=== PATIENT | male | born 1955 | race Hispanic/Latino ===

== ENCOUNTER 2018-02-21 00:02 | Inpatient (IN) | payer SELFPAY ==
[2018-02-21] MEDS ORDERED: Acetaminophen 650 MG Suppository PR PRN (00:33)
[2018-02-21] MEDS ORDERED: Ondansetron ODT 4 MG TAB PO PRN (00:33)
[2018-02-21] MEDS ORDERED: Calcium Carbonate 500 MG ChewTAB PO PRN (00:33)
[2018-02-21] MEDS ORDERED: Guaifenesin DM 100-10/5 ML UDCUP PO PRN (00:33)
[2018-02-21] MEDS ORDERED: hydrALAZINE 20 MG/ML VIAL SLOW IVP PRN (00:33)
[2018-02-21] MEDS ORDERED: Bisacodyl 5 MG TAB PO PRN (00:33)
[2018-02-21] MEDS ORDERED: Labetalol HCl 100 MG/20 ML VIAL SLOW IVP PRN (00:33)
[2018-02-21] MEDS ORDERED: Senokot S 8.6-50 MG TAB PO PRN (00:33)
[2018-02-21] MEDS ORDERED: Zolpidem Tartrate 5 MG TAB PO PRN (00:33)
[2018-02-21] MEDS ORDERED: Ondansetron PF 4 MG/2 ML Vial IVP PRN (00:33)
[2018-02-21] MEDS ORDERED: Aspirin 81 mg Enteric Coated Tablet PO SCH (01:15)
[2018-02-21] MEDS: Sodium Chloride 0.9% 1,000 ML IV SCH ×2 (02:03→20:50)
[2018-02-21] MEDS: Acetaminophen 325 MG TAB PO PRN ×2 (02:03→17:54)
[2018-02-21 03:01] VITALS: BMI 27.6
--- NOTE | 2018-02-21 05:31 | HP ---
CHIEF COMPLAINT: Bilateral extremities feeling heavy and difficulty with his speech. HISTORY OF PRESENT ILLNESS: This is a 62-year-old male with past medical history of hypertension, presenting with right-sided weakness and difficulty with speech, which began on the morning of admission. The patient states that he woke up, not able to really express himself, and was having right-sided heaviness. Per the , the patient was not at his baseline and that prompted the ED visit. At this time, the patient is stating that he is able to move the extremities bilaterally, but is still having some difficulties with his speech. 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 At this time, the patient denies any fever, chills, dizziness, nausea, vomiting, chest pain, palpitation, abdominal pain, constipation, diarrhea, dysuria, hematuria, hematochezia, or melena. REVIEW OF SYSTEMS: Positive for aphasia and mild right-sided weakness. Otherwise as documented in the HPI. All other systems are reviewed and are negative. PAST MEDICAL HISTORY: Hypertension. FAMILY HISTORY: Reviewed and noncontributory to today's visit PAST SURGICAL HISTORY: No surgical history. PSYCHIATRIC HISTORY: No previous psych history. SOCIAL HISTORY: The patient drinks daily. The patient drinks more than 5 drinks per day. The patient denies any illicit drugs and the patient denies any smoking history. ALLERGIES: NO KNOWN DRUG ALLERGIES. CURRENT MEDICATIONS: The patient takes lisinopril 20 mg. PHYSICAL EXAMINATION: VITAL SIGNS: Blood pressure is 170/105, pulse of 54, respiratory rate of 16, temperature of 98.5, oxygen saturation of 98% on room air. GENERAL: The patient is lying in bed, having difficulty with his speech. The patient is alert and oriented x3, not in acute distress. The patient appears his stated age. HEENT: Normocephalic, atraumatic. Pupils are equal, round, and reactive to light. Extraocular movements are intact. No scleral icterus. No conjunctival pallor. Mucous membranes are dry. NECK: Trachea is midline. Full range of motion. No JVD. No tenderness. Supple. RESPIRATORY: Clear to auscultation bilaterally. No wheezing, no rales, no rhonchi appreciated. CARDIAC: Positive S1 and S2. Regular rate and rhythm. No murmurs, no gallops , no rubs appreciated. ABDOMEN: Soft, nontender, and nondistended. No peritoneal signs. Positive bowel sounds in all quadrants. EXTREMITIES: 5/5 upper extremity strength Left compared to 4/5 on the right. and 5/5 lower extremity strength with good pulses bilaterally. The patient has good autographer at left hand compared to Right hand. There is mild weakness in the right upper extremity, maybe 4/5 in strength. NEUROLOGIC: No focal neurologic deficits noted at this time. The patient do have mild weakness of the right arm. Otherwise, all extremities are 5/5 in strength. The patient has difficulty with his speech. SKIN: Warm, dry, and intact. No lesions noted. PSYCHIATRIC: Normal affect, pleasant, alert, and oriented x3. IMAGING DATA: CTA of the head shows no significant CT abnormality of the head or neck. LABORATORY DATA: WBC is 6.1, hemoglobin is 16.4, hematocrit is 47.8, MCV is 96.8, platelet is 171. Chemistry; sodium is 138, potassium is 4.0, chloride is 108, carbon dioxide of 23, anion gap of 11, BUN is 9, creatinine is 0.83, glucose is 111. Troponin is less than 0.010. ASSESSMENT AND PLAN: 1. Aphasia, likely due to cerebrovascular accident. At this point, we have ordered CT of head which has been negative at this time. We have ordered MRI of the head. We will follow up on MRI of the head in the a.m. We have consulted Neurology. We will follow up with their recommendations. We will start the patient on aspirin and Plavix. 2. Hypertension, Uncontrolled: the patient currently is uncontrolled with blood pressure. At this time, we will give p.r.n. blood pressure medications to control the patient's blood pressure. We will monitor the patient on the stroke unit. 3. Transaminitis. The patient's AST 106, ALT 187. This can be due to fatty liver disease or alcoholic hepatitis. At this point, we will monitor and trend the patient's AST and ALT. 4. Deep vein thrombosis and gastrointestinal prophylaxis. Job ID: [id number] MTDD
[2018-02-21 06:05] LABS: #Basophils 0.1 thou/uL (0.0-0.2); #Eosinphils 0.3 thou/uL (0.0-0.7); #Lymphocytes 1.4 thou/uL (1.20-3.40); #Monocytes 0.6 thou/uL (0.11-0.59); #Neutrophils 2.8 thou/uL (1.40-6.50); %Basophils 2.1 % (0.0-1.0); %Eosinophils 5.3 % (0.0-10.0); %Lymphocytes 26.5 % (21.0-51.0); %Monocytes 11.5 % (0.0-10.0); %Neutrophils 54.6 % (42.0-75.0); Hemoglobin 15.3 g/dL (14.0-18.0); Mean Corpuscular HGB CONC 33.8 g/dL (32.0-36.0); Mean Corpuscular Hemoglobin 33.4 pg (27.0-31.0); Mean Corpuscular Volume 98.8 fL (78.0-98.0); Mean Platelet Volume 10.6 fL (7.4-10.4); Platelet Count 153 thou/uL (130-400); RBC Distribution Width 12.5 % (11.5-14.5); Red Blood Cell (RBC) Count 4.57 mill/uL (4.70-6.10); White Blood Cell (WBC) Count 5.2 thou/uL (4.8-10.8)
[2018-02-21 06:26] LABS: Anion Gap 9 mmol/L (10-20); BUN (Urea Nitrogen) 14 mg/dL (8.4-25.7); Calc. Creatinine Clearance 85 mL/min (70-130); Calcium 8.6 mg/dL (7.8-10.44); Carbon Dioxide 26 mmol/L (23-31); Cardiac Risk 4.3 (Less than 4.5); Chloride 107 mmol/L (98-107); Cholesterol 136 mg/dl (< 200 Desired); Estimated GFR-MDRD 74; Glucose 114 mg/dL (80-115); HDL Cholesterol 32 mg/dL (>60 Neg Risk); LDL Cholesterol, Calculated 87 mg/dL; Potassium 4.3 mmol/L (3.5-5.1); Sodium 138 mmol/L (136-145); Triglycerides 84 mg/dL (Less than 150)
[2018-02-21] MEDS: Lisinopril 20 MG TAB PO SCH (08:59)
[2018-02-21] MEDS: Aspirin 81 mg Enteric Coated Tablet PO SCH (08:59)
[2018-02-21] MEDS: Enoxaparin Sodium 40 MG/0.4 ML SYRINGE SC SCH (08:59)
[2018-02-21] MEDS: Famotidine 20 MG TAB PO SCH ×2 (08:59→20:50)
[2018-02-21] MEDS ORDERED: Famotidine/PF 20 mg/2ml Vial SLOW IVP SCH (09:00)
--- NOTE | 2018-02-21 10:42 | ULT ---
CAROTID DUPLEX ULTRASOUND: Indication: History of TIA. Technique: Grayscale, color doppler, and spectral doppler imaging was obtained of the carotid arterie s as well as the vertebral arteries. FINDINGS: Peak systolic velocity within the right CCA was 80.5 cm/sec and in the left CCA was 60.3 cm/sec. Peak systolic velocity within the right ICA was 81.5 cm/sec whereas the peak systolic velocity within the left ICA was 62.3 cm/sec. The right IC to CC ratio is 1.01 and the left is 1.03. Antegrade flow is seen within both vertebral arteries. IMPRESSION: 1. No hemodynamically significant stenosis demonstrated. POS: [facility]
--- NOTE | 2018-02-21 11:47 | MRI ---
MRI BRAIN WITHOUT CONTRAST: Comparison: None. History: Right sided facial drooping and right sided weakness. Technique: Multiplanar, multisequence MR images were obtained of the brain without contrast. FINDINGS: There is a 1.5 cm area of high FLAIR signal and restricted fusion in the left aspect of the obie cons istent with an acute infarction. There are other scattered foci of high FLAIR signal in the subcortic al and periventricular white matter without restricted diffusion consistent with small vessel ischemi c disease. There is no evidence of hydrocephalus, intracranial hemorrhage, or extraaxial fluid collection. The e xpected flow voids are present. The corpus callosum, pituitary, and craniocervical junction are unrem arkable. There is mucosal thickening in the maxillary sinuses. The mastoid air cells are well aerated. The krunal varium and overlying soft tissues are unremarkable. IMPRESSION: Acute left pontine infarction as above. POS: [facility]
--- NOTE | 2018-02-21 20:07 | PDOC.PN ---
- Subjective Encounter Start Date: 02/21/18 Encounter Start Time: 16:00 Patient seen and examined for Acute CVA. Rt sided weakness improving. No new complaints. No overnight events - Objective Resuscitation Status - Order Detail: 02/21/18 00:28 Resuscitation Status Routine Resuscitation Status: FULL: Full Resuscitation MAR Reviewed: Yes Vital Signs & Weight: Vital Signs (12 hours) Temp Pulse Pulse Pulse Resp BP BP 02/21/18 15:11 98.8 F 55 L 16 02/21/18 11:18 98.0 F 54 L 18 02/21/18 10:22 53 L 57 L 179/86 H 02/21/18 08:59 174/84 H 02/21/18 08:36 47 L 51 L 155/85 H BP BP Pulse Ox 02/21/18 15:11 143/77 H 98 02/21/18 11:18 127/90 99 02/21/18 10:22 161/108 H 02/21/18 08:59 02/21/18 08:36 174/87 H Weight Weight 176 lb 6.4 oz I&O: 02/20/18 02/21/18 02/22/18 06:59 06:59 06:59 Intake Total 600 Balance 600 Result Diagrams: 02/21/18 05:29 02/21/18 05:29 EKG Reviewed by me: Yes Phys Exam - Physical Examination Constitutional: NAD Respiratory: no wheezing, no rhonchi Cardiovascular: RRR, no rub Gastrointestinal: soft, non-tender, positive bowel sounds Musculoskeletal: no edema Neurological: moves all 4 limbs Rt sided weakness - improving Dx/Plan (1) Acute CVA (cerebrovascular accident) Code(s): I63.9 - CEREBRAL INFARCTION, UNSPECIFIED Status: Acute Comment: with Rt sided hemiparesis (2) HTN (hypertension) Code(s): I10 - ESSENTIAL (PRIMARY) HYPERTENSION Status: Chronic (3) Abnormal LFTs Code(s): R94.5 - ABNORMAL RESULTS OF LIVER FUNCTION STUDIES Status: Acute (4) Chronic alcoholism Code(s): F10.20 - ALCOHOL DEPENDENCE, UNCOMPLICATED Status: Chronic - Plan cont current plan of care, DVT proph w/SCDs Cont ASA/Statins -: Cont Lisinopril -: DC IVF -: Cont other meds as below -: Add ASE protocol Review of Systems - Review of Systems Respiratory: negative: Cough, Dry, Shortness of Breath, Hemoptysis, SOB with Excertion, Pleuritic Pain, Sputum, Wheezing Cardiovascular: negative: chest pain, palpitations, orthopnea, paroxysmal nocturnal dyspnea, edema, light headedness, other - Medications/Allergies Allergies/Adverse Reactions: Allergies Allergy/AdvReac Type Severity Reaction Status Date / Time No Known Drug Allergies Allergy Verified 02/21/18 06:34 Medications: Current Medications Acetaminophen (Tylenol) 650 mg PO Q4H PRN PRN Reason: Headache/Fever/Mild Pain (1-3) Last Admin: 02/21/18 17:54 Dose: 650 mg Acetaminophen (Tylenol) 650 mg GA Q4H PRN PRN Reason: Headache/Fever/Mild Pain (1-3) Aspirin (Ecotrin) 81 mg PO DAILY [facility] Last Admin: 02/21/18 08:59 Dose: 81 mg Atorvastatin Calcium (Lipitor) 20 mg PO HS [facility] Bisacodyl (Dulcolax) 10 mg PO DAILYPRN PRN PRN Reason: Constipation Calcium Carbonate (Tums) 1,000 mg PO Q4H PRN PRN Reason: Heartburn or Indigestion Enoxaparin Sodium (Lovenox) 40 mg SC 0900 [facility] Last Admin: 02/21/18 08:59 Dose: 40 mg Famotidine (Pepcid) 20 mg PO BID [facility] Last Admin: 02/21/18 08:59 Dose: 20 mg Guaifenesin/Dextromethorphan (Robitussin Dm) 15 ml PO Q4H PRN PRN Reason: Cough Hydralazine HCl (Apresoline) 10 mg SLOW IVP Q4H PRN PRN Reason: SBP > 180 Sodium Chloride (Normal Saline 0.9%) 1,000 mls @ 70 mls/hr IV .[id number] [facility] Last Admin: 02/21/18 02:03 Dose: 1,000 mls Labetalol HCl (Normodyne) 20 mg SLOW IVP Q1H PRN PRN Reason: BP > 220/110 Lisinopril (Zestril) 20 mg PO DAILY [facility] Last Admin: 02/21/18 08:59 Dose: 20 mg Ondansetron HCl (Zofran Odt) 4 mg PO Q6H PRN PRN Reason: Nausea/Vomiting Ondansetron HCl (Zofran) 4 mg IVP Q6H PRN PRN Reason: Nausea/Vomiting Pneumococcal Polyvalent Vaccine (Pneumovax 23) 0.5 ml IM .ONCE ONE Stop: 02/22/18 09:01 Senna/Docusate Sodium (Senokot S) 2 tab PO BID PRN PRN Reason: Constipation Sodium Chloride (Flush - Normal Saline) 10 ml IVF Q12HR PRN PRN Reason: Saline Flush Sodium Chloride (Flush - Normal Saline) 10 ml IVF PRN PRN PRN Reason: Saline Flush Sodium Chloride (Flush - Normal Saline) 10 ml IVF PRN PRN PRN Reason: Saline Flush Zolpidem Tartrate (Ambien) 5 mg PO HSPRN PRN PRN Reason: Insomnia
[2018-02-21] MEDS ORDERED: Lorazepam 1 MG TAB PO PRN (20:55)
[2018-02-21] MEDS ORDERED: Atorvastatin Calcium 20 MG TAB PO SCH (21:00)
[2018-02-21] MEDS ORDERED: Atorvastatin Calcium 40 MG TAB PO SCH (21:00)
[2018-02-22] MEDS: Famotidine 20 MG TAB PO SCH (08:22)
[2018-02-22] MEDS: Aspirin 81 mg Enteric Coated Tablet PO SCH (08:22)
[2018-02-22] MEDS: Acetaminophen 325 MG TAB PO PRN (08:23)
[2018-02-22] MEDS: Enoxaparin Sodium 40 MG/0.4 ML SYRINGE SC SCH (08:23)
[2018-02-22] MEDS: Lisinopril 20 MG TAB PO SCH (08:23)
[2018-02-22] MEDS ORDERED: Multivit, Therapeutic 1 TAB PO SCH (09:00)
[2018-02-22] MEDS ORDERED: Folic Acid 1 MG TAB PO SCH (09:00)
[2018-02-22 11:50] VITALS: TEMP 98
[2018-02-22 13:36] VITALS: BP 178/90
--- NOTE | 2018-02-22 21:24 | DIS ---
DATE OF ADMISSION: 02/21/2018 DATE OF DISCHARGE: 02/22/2018 DISCHARGE DISPOSITION: Home. FOLLOWUP: 1. Follow up with primary care physician, Etelvina Palafox PA-C, in 1 week. 2. Follow up with Dr. Valle in 2 weeks. ALLERGIES: NO KNOWN DRUG ALLERGIES. THE PATIENT WAS SEEN ON THE DAY OF DISCHARGE. DENIES ANY NEW COMPLAINTS. NO SHORTNESS OF BREATH, PALPITATIONS, OR FOCAL NEUROLOGIC DEFICIT REPORTED. DIAGNOSTIC TESTS: MRI of the brain showed acute left pontine infarction measuring approximately 1.5 cm. Echocardiogram showed left ventricular ejection fraction of 60% to 65% with normal diastolic function, mild to moderate tricuspid regurgitation. Carotid Doppler was negative for hemodynamically significant stenosis. BRIEF HOSPITAL COURSE: The patient is a 62-year-old male with chronic alcoholism and hypertension, currently taking lisinopril 20 mg daily, presented to the hospital with stroke-like symptoms along with slurriness of speech. Please refer to the history and physical for further details. The patient was admitted to the hospital with a diagnosis of acute CVA. He underwent stroke workup as discussed above. He has been started on 81 mg aspirin per Neurology Service. Lipitor was started as well. His fasting lipid profile showed LDL 87, HDL 32, cholesterol 136, with triglyceride 84. He has been cleared by Neurology Service for discharge. FINAL DIAGNOSES: 1. 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 2. Hypertension. 3. Mildly abnormal LFTs, probably secondary to chronic alcoholism. 4. Chronic alcoholism. 5. Chronic kidney disease stage 2. 6. Macrocytosis, probably secondary to chronic alcoholism. DISCHARGE MEDICATIONS: 1. Aspirin 81 mg daily. 2. Lipitor 20 mg q.h.s. 3. Multivitamin. 4. Folic acid. 5. Thiamine. 6. Lisinopril 20 mg daily. The patient was extensively counseled on lifestyle modification as well as alcohol cessation. Job ID: [id number]
== END 2018-02-22 14:03 | disposition home or self-care (01) | DRG 65 ==
LOC: 2SE 00:18
PROVIDERS: ADMIT Emergency Medicine; ATTEND Emergency Medicine
DX: I63.9 Cerebral infarction, unspecified (principal); G81.91 Hemiplegia, unspecified affecting right dominant side; R94.5 Abnormal results of liver function studies; F10.20 Alcohol dependence, uncomplicated; R47.81 Slurred speech; I12.9 Hypertensive chronic kidney disease with stage 1 through stage 4 chronic kidney disease, or unspecified chronic kidney disease; N18.2 Chronic kidney disease, stage 2 (mild)
CPT/HCPCS: 36415; 70551; 80048; 80061; 85025; 90471; 90686; 90732; 93306; 93880; G0008; G0009; J1650